=== PATIENT | female | born 1995 | race American Indian/Alaskan Native ===

== ENCOUNTER 2019-03-08 13:47 | Outpatient (CLI) | payer MEDICAID | END 2019-03-08 13:48 | disposition home or self-care (01) | LOC: LAB 13:47 | PROVIDERS: ATTEND Advanced Practice Midwife | DX: Z34.83 Encounter for supervision of other normal pregnancy, third trimester (principal) | CPT/HCPCS: 86850; 86900; 86901 ==

== ENCOUNTER 2019-04-14 13:16 | Outpatient (CLI) | payer MEDICAID | END 2019-04-14 18:35 | disposition home or self-care (01) | LOC: LAB 13:16 → TRG 16:45 → LAB 18:35 | PROVIDERS: ATTEND Advanced Practice Midwife | DX: O26.893 Other specified pregnancy related conditions, third trimester (principal); Z67.41 Type O blood, Rh negative; Z3A.00 Weeks of gestation of pregnancy not specified | CPT/HCPCS: 86850; 86900; 86901; 96372; J2790 ==

== ENCOUNTER 2019-05-20 00:36 | Outpatient (CLI) | payer MEDICAID ==
[2019-05-20] MEDS ORDERED: VISTARIL PO ONE (02:00)
== END 2019-05-20 02:31 | disposition home or self-care (01) ==
LOC: TRG 00:36
PROVIDERS: ATTEND Obstetrics & Gynecology
DX: O62.8 Other abnormalities of forces of labor (principal); Z3A.39 39 weeks gestation of pregnancy
CPT/HCPCS: 59025; Q0177

== ENCOUNTER 2019-05-20 17:56 | Inpatient (IN) | payer MEDICAID ==
--- NOTE | 2019-05-20 20:45 | Ultrasound Report ---
ULTRASOUND OBSTETRIC limited INDICATION / CLINICAL INFORMATION: MASOUD; variables. TECHNIQUE: Transabdominal. COMPARISON: None available. FINDINGS: There is a single intrauterine . Heart Rate: 154 beats per minute. Position: cephalic Placenta: anterior, grade 1 and free of the os. Amniotic Fluid Volume: normal Amniotic Fluid Index (MASOUD) in cm (if calculated): 11.5. Maternal Adnexa: No significant abnormality. IMPRESSION: 1. Single, living intrauterine with normal MASOUD. Signer Name: Basil Lezama MD Signed: 05/20/2019 8:41 PM Workstation Name: [id number]
[2019-05-20] MEDS ORDERED: BRETHINE IVP PRN (21:27)
[2019-05-20] MEDS ORDERED: MINERAL OIL PO PRN (21:27)
[2019-05-20] MEDS ORDERED: XYLOCAINE 2% INFILTRATI ONE (21:27)
[2019-05-20] MEDS ORDERED: SUBLIMAZE IV PRN (21:27)
[2019-05-20] MEDS ORDERED: STADOL IV PRN (21:27)
[2019-05-20] MEDS ORDERED: BRETHINE SUB-Q PRN (21:27)
[2019-05-20] MEDS ORDERED: NARCAN 0.4 MG/1 ML IV PRN (21:27)
[2019-05-20] MEDS ORDERED: ZOFRAN IV PRN (21:27)
[2019-05-20] MEDS: LACTATED RINGERS 1,000 ML IV SCH ×2 (22:00→23:42)
[2019-05-20] MEDS ORDERED: PITOCin/NS 30 UNIT/500ML 30 UNITS/500 ML BAG IV SCH ×2 (22:00)
[2019-05-20] MEDS ORDERED: PITOCin/NS 20 UNIT/1000ML DRIP 20 UNITS/1,000 ML BAG IV SCH (22:00)
[2019-05-20 23:12] LABS: Hematocrit 42.6 % (30.3-42.9); Hemoglobin 14.5 gm/dl (10.1-14.3); Mean Corpuscular HGB Conc 34 % (30-34); Mean Corpuscular Volume 95 fl (79-97); Platelet Count 209 K/mm3 (140-440); Red Cell Distribution Width 14.3 % (13.2-15.2)
[2019-05-21] MEDS ORDERED: NARCAN 2 MG/2 ML IV PRN (00:56)
--- NOTE | 2019-05-21 00:59 | Anesthesia Consultation ---
Anesthesia Consult and Med Hx Date of service: 05/21/19 - Airway Anesthetic Teeth Evaluation: Good ROM Head & Neck: Adequate Mental/Hyoid Distance: Adequate Mallampati Class: Class II Intubation Access Assessment: Probably Good - Pulmonary Exam CTA: Yes - Cardiac Exam Cardiac Exam: RRR - Pre-Operative Health Status ASA Pre-Surgery Classification: ASA2 Proposed Anesthetic Plan: Epidural - Pulmonary Hx Smoking: No Hx Asthma: No Hx Respiratory Symptoms: No SOB: No COPD: No Home Oxygen Therapy: No Hx Pneumonia: No Hx Sleep Apnea: No - Cardiovascular System Hx Hypertension: No Hx Coronary Artery Disease: No Hx Heart Attack/AMI: No Hx Angina: No Hx Percutaneous Transluminal Coronary Angioplasty (PTCA): No Hx Cardia Arrhythmia: No Hx Pacemaker: No Hx Internal Defibrillator: No Hx Valvular Heart Disease: No Hx Heart Murmur: No Hx Peripheral Vascular Disease: No - Central Nervous System Hx Neuromuscular Disorder: No Hx Seizures: No CVA: No Hx Back Pain: No Hx Psychiatric Problems: No - Gastrointestinal Hx Ulcer: No Hx Gastroesophageal Reflux Disease: Yes - Endocrine Hx Renal Disease: No Hx End Stage Renal Disease: No Hx Cirrhosis: No Hx Liver Disease: No Hx Insulin Dependent Diabetes: No Hx Non-Insulin Dependent Diabetes: No Hx Thyroid Disease: No Hx Hypothyroidism: No Hx Hyperthyroidism: No - Hematic Hx Anemia: No Hx Sickle Cell Disease: No - Other Systems Hx Alcohol Use: No Hx Substance Use: No Hx Cancer: No Hx Obesity: No
[2019-05-21] MEDS ORDERED: fentaNYL-BUPIV 2 MCG/ML-0.125% 200 MCG/100 ML BAG EPIDURAL SCH (01:00)
[2019-05-21] MEDS: LACTATED RINGERS 1,000 ML IV SCH (01:04)
[2019-05-21] MEDS ORDERED: MINERAL OIL PO PRN (02:44)
[2019-05-21] MEDS ORDERED: BRETHINE IVP PRN (02:44)
[2019-05-21] MEDS ORDERED: XYLOCAINE 2% INFILTRATI ONE (02:44)
[2019-05-21] MEDS ORDERED: BRETHINE SUB-Q PRN (02:44)
[2019-05-21] MEDS ORDERED: DULCOLAX PR PRN (02:48)
[2019-05-21] MEDS ORDERED: TUCKS PAD TP PRN (02:48)
[2019-05-21] MEDS ORDERED: PHENERGAN PR PRN (02:48)
[2019-05-21] MEDS ORDERED: ZOFRAN IV PRN (02:48)
[2019-05-21] MEDS ORDERED: NORCO 5/325 PO PRN (02:48)
[2019-05-21] MEDS ORDERED: MILK OF MAGNESIA PO PRN (02:48)
[2019-05-21] MEDS ORDERED: LANSINOH TP PRN (02:48)
[2019-05-21] MEDS ORDERED: TYLENOL PO PRN (02:48)
[2019-05-21] MEDS ORDERED: BENADRYL PO PRN (02:48)
[2019-05-21] MEDS ORDERED: PHENERGAN PO PRN (02:48)
--- NOTE | 2019-05-21 02:55 | History and Physical Report ---
History of Present Illness Date of examination: 05/21/19 Date of admission: 05/20/19 19:58 Chief complaint: SROM clear fluid History of present illness: Pt is a 23yo BF EDC 05/24/19; EGA 39 4/7 weeks presents to L&D complaining of SROM clear fluid @ 203905/20/19 followed by RUC's q 4-6 mins. She received care at [facility] since 14 weeks and course was unremarkable. records are available, and GBS is Negative. 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 Family/Genetic History: none Social history: no significant social history, single - Obstetrical History Expected Date of Delivery: 05/24/19 Actual Gestation: 39 Week(s) 4 Day(s) : 1 Medications and Allergies Allergies Allergy/AdvReac Type Severity Reaction Status Date / Time No Known Allergies Allergy Verified 05/20/19 18:26 Home Medications Medication Instructions Recorded Confirmed Last Taken Type No Known Home Medications [No 04/14/19 05/20/19 Unknown History Reported Home Medications] Active Meds: Active Medications Acetaminophen (Tylenol) 650 mg PO Q4H PRN PRN Reason: Pain MILD(1-3)/Fever >100.5/ROJAS Bisacodyl (Dulcolax) 10 mg PA BID PRN PRN Reason: Constipation Butorphanol Tartrate (Stadol) 1 mg IV Q2H PRN PRN Reason: Pain, Moderate (4-6) Last Admin: 05/20/19 22:45 Dose: 1 mg Documented by: Diphenhydramine HCl (Benadryl) 25 mg PO Q6H PRN PRN Reason: Itching Diphtheria/Tetanus/Acell Pertussis (Boostrix) 0.5 ml IM .ONCE ONE Stop: 05/22/19 02:49 Ephedrine Sulfate (Ephedrine Sulfate) 10 mg IV Q2M PRN PRN Reason: Hypotension Ephedrine Sulfate (Ephedrine Sulfate) 10 mg IV Q2M PRN PRN Reason: Hypotension Fentanyl (Sublimaze) 100 mcg IV Q2H PRN PRN Reason: Labor Pain Ferrous Sulfate (Feosol) 325 mg PO BID HILDA Oxytocin/Sodium Chloride (Pitocin/Ns 20 Unit/1000ml Drip) 20 units in 1,000 mls @ 125 mls/hr IV DIRECT HILDA Oxytocin/Sodium Chloride (Pitocin/Ns 30 Unit/500ml) 30 units in 500 mls @ 1 mls/hr IV TITR HILDA; Protocol Oxytocin/Sodium Chloride (Pitocin/Ns 30 Unit/500ml) 30 units in 500 mls @ 2 mls/hr IV TITR HILDA; Protocol Lactated Ringer's (Lactated Ringers) 1,000 mls @ 125 mls/hr IV DIRECT HILDA Last Admin: 05/21/19 01:04 Dose: 125 mls/hr Documented by: Fentanyl/Bupivacaine/Sodium Chlor (Fentanyl-Bupiv 2 Mcg/Ml-0.125%) 200 mcg in 100 mls @ 12 mls/hr EPIDURAL TITR HILDA; Protocol Oxytocin/Sodium Chloride (Pitocin/Ns 20 Unit/1000ml Drip) 20 units in 1,000 mls @ 125 mls/hr IV DIRECT HILDA Oxytocin/Sodium Chloride (Pitocin/Ns 30 Unit/500ml) 30 units in 500 mls @ 1 mls /hr IV TITR HILDA; Protocol Lactated Ringer's (Lactated Ringers) 1,000 mls @ 125 mls/hr IV DIRECT HILDA Oxytocin/Sodium Chloride (Pitocin/Ns 20 Unit/1000ml Drip) 20 units in 1,000 mls @ 250 mls/hr IV DIRECT HILDA Ibuprofen (Ibuprofen) 600 mg PO Q6H HILDA Lidocaine (Xylocaine 2%) 20 ml INFILTRATI ONCE ONE Stop: 05/21/19 02:45 Magnesium Hydroxide (Milk Of Magnesia) 30 ml PO HS PRN PRN Reason: Constipation Measles/Mumps/Rubella Vaccine Live (M-M-R Ii Vaccine) 0.5 ml SUB-Q .ONCE ONE Stop: 05/22/19 02:49 Mineral Oil (Mineral Oil) 30 ml PO QHS PRN PRN Reason: Constipation Mineral Oil (Mineral Oil) 30 ml PO QHS PRN PRN Reason: Constipation Multi-Ingredient Ointment (Lansinoh) 1 applic TP PRN PRN PRN Reason: Sore Nipples Multivitamins/Iron/Calcium ( Vitamin) 1 each PO QDAY HILDA Naloxone HCl (Narcan 2 Mg/2 Ml) 0.2 mg IV Q5M PRN PRN Reason: Respiratory sedation Ondansetron HCl (Zofran) 4 mg IV Q8H PRN PRN Reason: Nausea And Vomiting Last Admin: 05/20/19 23:30 Dose: 4 mg Documented by: Ondansetron HCl (Zofran) 4 mg IV Q8H PRN PRN Reason: Nausea And Vomiting Promethazine HCl (Phenergan) 25 mg PA Q6H PRN PRN Reason: Nausea And Vomiting Promethazine HCl (Phenergan) 25 mg PO Q6H PRN PRN Reason: Nausea And Vomiting Sodium Chloride (Sodium Chloride Flush Syringe 10 Ml) 10 ml IV PRN NR Terbutaline Sulfate (Brethine) 0.25 mg SUB-Q ONCE PRN PRN Reason: Hyperstimulation/Hypertonicity Terbutaline Sulfate (Brethine) 0.25 mg IVP ONCE PRN PRN Reason: Hyperstimulation/Hypertonicity Terbutaline Sulfate (Brethine) 0.25 mg SUB-Q ONCE PRN PRN Reason: Hyperstimulation/Hypertonicity Terbutaline Sulfate (Brethine) 0.25 mg IVP ONCE PRN PRN Reason: Hyperstimulation/Hypertonicity Witch Jing/Glycerin (Tucks Pad) 1 each TP PRN PRN PRN Reason: Hemorrhoid/cleansing/soothing Review of Systems All systems: negative - Vital Signs Vital signs: Vital Signs Pulse BP 85 107/64 05/20/19 18:21 05/20/19 18:21 Temp Pulse Resp BP Pulse Ox 98.6 F 93 H 18 132/61 97 05/20/19 21:15 05/21/19 02:46 05/21/19 01:50 05/21/19 02:40 05/21/19 02:46 - Physical Exam Breasts: Positive: deferred Cardiovascular: Regular rate Lungs: Positive: Clear to auscultation Abdomen: Positive: normal appearance Genitourinary (Female): Positive: normal external genitalia Vagina: Positive: normal moisture Uterus: Positive: enlarged Extremities: Positive: normal - Obstetrical FHR: category 1 Uterine Contraction Monitor Mode: External Cervical Dilatation: 10 Cervical Effacement Percentage: 100 station: +1 Uterine Contraction Pattern: Regular Uterine Tone Measurement Phase: Contraction Uterine Contraction Intensity: Moderate Results Result Diagrams: 05/20/19 21:48 Abnormal lab results 05/20/19 Range/Units 21:48 WBC 19.8 H (4.5-11.0) K/mm3 Hgb 14.5 H (10.1-14.3) gm/dl All other labs normal. Assessment and Plan - Patient Problems (1) 39 weeks gestation of Onset Date: 05/21/19 Current Visit: Yes Status: Acute Plan to address problem: A: IUP @ 39 4/7 weeks in labor P: Admit to L&D for expectant vaginal delivery
[2019-05-21] MEDS ORDERED: PITOCin/NS 20 UNIT/1000ML DRIP 20 UNITS/1,000 ML BAG IV SCH (03:00)
[2019-05-21] MEDS ORDERED: PITOCin/NS 30 UNIT/500ML 30 UNITS/500 ML BAG IV SCH (03:00)
[2019-05-21] MEDS ORDERED: LACTATED RINGERS 1,000 ML IV SCH (03:00)
[2019-05-21] MEDS ORDERED: SODIUM CHLORIDE FLUSH SYRINGE 10 ML IV PRN (03:00)
--- NOTE | 2019-05-21 03:01 | Procedure Note ---
OB Delivery Note - Delivery Date of Delivery: 05/21/19 Surgeon: ALICE OH Estimated blood loss: 100cc - Vaginal Delivery presentation: vertex Delivery position: OA Intrapartum events: PROM->1hr before delivery Delivery induction: none Delivery augmentation: rupture of membranes Delivery monitor: external FHT, external uterine Route of delivery: Delivery placenta: spontaneous Delivery cord: nuchal cord, 3 umbilical vessels Episiotomy: none Delivery laceration: none Anesthesia: epidural Delivery comments: Infant delivered OA and placed on Mom's chest for [id number] bonding and delayed cord clamping, cut by Dad - Infant A at 1 minute: 8 at 5 minutes: 9 Infant Gender: Female (2723gms)
[2019-05-21] MEDS: PITOCin/NS 20 UNIT/1000ML DRIP 20 UNITS/1,000 ML BAG IV SCH ×2 (04:04→04:06)
[2019-05-21] MEDS: FEOSOL PO SCH ×2 (09:19→21:58)
[2019-05-21] MEDS: PRENATAL VITAMIN PO SCH (09:19)
[2019-05-21] MEDS: COLACE PO SCH ×2 (09:19→21:58)
[2019-05-21] MEDS: IBUPROFEN PO SCH ×4 (09:19→23:44)
[2019-05-21 15:12] LABS: Hematocrit 40.8 % (30.3-42.9); Hemoglobin 13.8 gm/dl (10.1-14.3)
[2019-05-22] MEDS ORDERED: M-M-R II VACCINE SUB-Q ONE (02:48)
[2019-05-22] MEDS: IBUPROFEN PO SCH ×3 (05:59→16:15)
[2019-05-22] MEDS ORDERED: BOOSTRIX IM ONE (06:00)
[2019-05-22] MEDS: PRENATAL VITAMIN PO SCH (09:15)
[2019-05-22] MEDS: FEOSOL PO SCH (09:15)
[2019-05-22] MEDS: COLACE PO SCH (09:15)
--- NOTE | 2019-05-22 11:47 | Progress Note ---
Assessment and Plan - Patient Problems (1) 39 weeks gestation of Onset Date: 05/21/19 Current Visit: Yes Status: Resolved (2) (normal spontaneous vaginal delivery) Onset Date: 05/22/19 Current Visit: Yes Status: Resolved Plan to address problem: A: S/P - PPD #1 Doing well P: May go home tomorrow. Subjective - Subjective Date of service: 05/22/19 Principal diagnosis: s/p - PPD #1 Interval history: Pt is feeling well without complaints. Bleeding improved. Patient reports: appetite normal, voiding normally, pain well controlled, flatus, ambulating normally, no dizzy ambulation, no nauseated : doing well, nursing well, bottle feeding Objective - Vital Signs Latest vital signs: Vital Signs Temp Pulse Resp BP BP Pulse Ox 05/22/19 08:10 98.1 F 70 20 104/58 05/22/19 00:45 98.0 F 105 H 20 99/60 97 05/21/19 17:13 97.8 F 79 18 103/59 05/21/19 13:22 97.9 F 78 18 98/60 Intake and Output 05/21/19 05/22/19 05/22/19 22:59 06:59 14:59 Intake Total 730 550 360 Balance 730 550 360 Intake: Oral 730 550 360 Other: Total, Intake Amount 250 300 360 # Voids Void 1 1 - Exam Breasts: Present: deferred Abdomen: Present: normal appearance, soft Uterus: Present: normal, firm, fundal height below umbilicus Extremities: Present: normal - Labs Labs: Laboratory Tests 05/20/19 05/20/19 05/20/19 21:48 21:50 21:50 WBC 19.8 H RBC 4.50 Hgb 14.5 H Hct 42.6 MCV 95 MCH 32 MCHC 34 RDW 14.3 Plt Count 209 RPR Nonreactive Hep Bs Antigen HIV 1&2 Antibody Rapid HIV P24 Antigen Blood Type O NEGATIVE Antibody Screen Positive Antibody Identification Anti-D (Passively Aquired) Screen 05/21/19 05/21/19 05/21/19 14:34 14:34 14:34 WBC RBC Hgb 13.8 Hct 40.8 MCV MCH MCHC RDW Plt Count RPR Hep Bs Antigen Non-reactive HIV 1&2 Antibody Rapid HIV P24 Antigen Blood Type O NEGATIVE Antibody Screen Positive Antibody Identification Anti-D (Passively Aquired) Screen Negative 05/21/19 14:34 WBC RBC Hgb Hct MCV MCH MCHC RDW Plt Count RPR Hep Bs Antigen HIV 1&2 Antibody Rapid Non react HIV P24 Antigen Non react Blood Type Antibody Screen Antibody Identification Screen
--- NOTE | 2019-05-22 12:23 | Discharge Summary ---
Providers - Providers Date of Admission: 05/20/19 19:58 Date of discharge: 05/23/19 Attending physician: ALICE OH Primary care physician: ALICE OH Hospitalization Reason for admission: active labor, rupture of membranes, IUP at term Delivery: Episiotomy: none Laceration: none Other procedures: none complications: none Discharge diagnosis: IUP at term delivered [place] baby: female Hospital course: Unremarkable. Condition at discharge: Good Disposition: DC-01 TO HOME OR SELFCARE - Discharge Diagnoses (1) 39 weeks gestation of Status: Resolved (2) (normal spontaneous vaginal delivery) Status: Resolved Plan - Discharge Medications Prescriptions: Ibuprofen [Motrin 600 MG tab] 600 mg PO Q6H #30 tablet Vit-Fe Fumar-FA [ Vitamin] 1 each PO QDAY #30 tablet - Provider Discharge Summary Activity: routine, no sex for 6 weeks, no heavy lifting 4 weeks, no strenuous exercise Diet: routine Instructions: routine Additional instructions: [] Smoking cessation referral if applicable(refer to patient education folder for contact #) [] Refer to [facility]'s [facility] Booklet Call your doctor immediately for: * Fever > 100.5 * Heavy vaginal bleeding ( >1 pad per hour) * Severe persistent headache * Shortness of breath * Reddened, hot, painful area to leg or breast * Drainage or odor from incision. * Keep incision clean and dry at all times and follow doctor's instructions regarding bathing/showering - Follow up plan Follow up: ALICE OH MD [Primary Care Provider] - 6 Weeks GILDA SAN CNM [Advanced Practice Nurse] - 6 Weeks
[2019-05-23] MEDS: COLACE PO SCH
[2019-05-23] MEDS: IBUPROFEN PO SCH ×3 (03:00→08:50)
[2019-05-23] MEDS: FEOSOL PO SCH ×2 (09:00)
[2019-05-23] MEDS: PRENATAL VITAMIN PO SCH (09:00)
[2019-05-23 12:14] VITALS: BP 106/65
== END 2019-05-23 12:30 | disposition home or self-care (01) | DRG 775 ==
LOC: TRG 17:56 → LD 19:58 → OBSVTOIN 19:58 → OB 05-21 05:29
PROVIDERS: ADMIT Obstetrics & Gynecology; ATTEND Obstetrics & Gynecology
PROC: 10E0XZZ Delivery of Products of Conception, External Approach (ICD-10-PCS; principal; 2019-05-21)
PROC: 3E0R3BZ Introduction of Anesthetic Agent into Spinal Canal, Percutaneous Approach (ICD-10-PCS; 2019-05-21)
PROC: 00HU33Z Insertion of Infusion Device into Spinal Canal, Percutaneous Approach (ICD-10-PCS; 2019-05-21)
PROC: 3E0234Z Introduction of Serum, Toxoid and Vaccine into Muscle, Percutaneous Approach (ICD-10-PCS; 2019-05-21)
DX: O42.02 Full-term premature rupture of membranes, onset of labor within 24 hours of rupture (principal); O99.62 Diseases of the digestive system complicating childbirth; K21.9 Gastro-esophageal reflux disease without esophagitis; O69.81X0 Labor and delivery complicated by cord around neck, without compression, not applicable or unspecified; Z3A.39 39 weeks gestation of pregnancy; Z37.0 Single live birth; Z23 Encounter for immunization
CPT/HCPCS: 36415; 59025; 76815; 85014; 85018; 85027; 85461; 86592; 86706; 86762; 86850; 86870; 86900; 86901; 87806; 96360; 96365; 96366; 96374; G0378; A6250; J0595; J2405; J2590; J2790; J7120